=== PATIENT | female | born 1935 | race Caucasian/White ===

== ENCOUNTER 2017-06-06 17:27 | Inpatient (IN) | payer BC, OTHER ==
[~2017-06-06] VITALS: Ht 162.6 cm; Wt 65.3 kg
[~2017-06-06 17:27] MED LIST: ACET-868 PO; ASCO-340 PO; CHOL20006 PO; CYAN500T4 PO; FERR240T2 PO; LEVO500T15 PO; NAPR220T66 PO; PANT40TA2 PO
[2017-06-06 19:04] LABS: HEMATOCRIT 25 % (33-45); HEMOGLOBIN 7.4 g/dL (11.5-14.8); MEAN CORPUSCULAR HEMOGLOBIN 19 PG (26.0-33.0); MEAN CORPUSCULAR HGB CONC 29 g/dl (31.0-36.0); MEAN CORPUSCULAR VOLUME 66 fL (82-100); PLATELET COUNT (AUTO) 301 /CMM (150-450); RDW COEFFICIENT OF VARIATION 18.8 (11.5-15.0); RED BLOOD CELL COUNT(AUTO) 3.86 MIL/uL (4.0-5.2); WHITE BLOOD COUNT (AUTO) 6.7 K/uL (4.3-11.0)
[2017-06-06 19:09] LABS: APPEARANCE,URINE Clear (CLEAR); BILIRUBIN,URINE SMALL (NEGATIVE); BLOOD, URINE Negative Ery/uL (NEGATIVE); COLOR,URINE Yellow (YELLOW); KETONES,URINE Negative (NEGATIVE); LEUKOCYTE ESTERASE ,URINE Negative (NEGATIVE); NITRITE, URINE Negative (NEGATIVE); PH,URINE 5.5 (5.0-8.0); PROTEIN,URINE Negative (NEGATIVE); UGLUCOSE Negative (NEGATIVE); UROBILINOGEN,URINE 0.2 EU/dL (0.2)
[2017-06-06 19:26] LABS: ALANINE AMINOTRANSFERASE 148 U/L (12-78); ALBUMIN 3.3 g/dL (3.4-5.0); ALKALINE PHOSPHATASE 253 U/L (46-116); ASPARTATE AMINOTRANSFERASE 87 U/L (15-37); BILIRUBIN,DIRECT 1.3 mg/dL (0.0-0.2); BILIRUBIN,TOTAL 1.6 mg/dL (0.2-1.0); CALCIUM, SERUM 8.7 mg/dL (8.5-10.1); CARBON DIOXIDE 22 mmol/L (21-32); CHLORIDE 102 mmol/L (98-107); CREATININE 0.9 mg/dL (0.6-1.3); GLUCOSE 143 mg/dL (74-106); LIPASE 183 U/L (73-393); POTASSIUM 4.2 mmol/L (3.5-5.1); SODIUM SERUM 135 mmol/L (136-145); TOTAL PROTEIN, SERUM 6.7 g/dL (6.4-8.2); UREA NITROGEN, BLOOD 41 mg/dL (7-18)
[2017-06-06 19:42] LABS: TROPONIN I < 0.017 ng/mL (0.00-0.056)
[2017-06-06 20:13] LABS: BAND % (MANUAL) 5 % (0.0-5.0); EOSINOPHILS % (MANUAL) 2 % (0-4); LYMPHOCYTES % (MANUAL) 6 % (16-48); MONOCYTES % (MANUAL) 2 % (0-11.0); NEUTROPHILS % (MANUAL) 85 (42-76)
[2017-06-06 22:00] VITALS: BP 148/77
[2017-06-06 22:16] VITALS: BP 148/77
[2017-06-06] MEDS ORDERED: diphenhydrAMINE HCL 25 MG CAPSULE PO PRN (22:30)
[2017-06-06] MEDS ORDERED: ZOLPIDEM TARTRATE 5 MG TABLET PO PRN (22:30)
[2017-06-06] MEDS ORDERED: HYDROCODONE/APAP 5/325MG 1 EACH TABLET PO PRN (22:30)
[2017-06-07] VITALS (16 sets, daily range): BP systolic 102–137; BP diastolic 48–83
[2017-06-07] MEDS ORDERED: diphenhydrAMINE HCL 25 MG CAPSULE ONE (01:51)
[2017-06-07] MEDS ORDERED: MULT-1168 PO (08:45)
[2017-06-07] MEDS ORDERED: FERR-58 PO (08:45)
[2017-06-07] MEDS ORDERED: CHOLECALCIFEROL 1,000 UNIT TABLET (VIT D3) PO SCH (13:00)
[2017-06-07 15:19] LABS: HEMATOCRIT 33 % (33-45); HEMOGLOBIN 10.3 g/dL (11.5-14.8); MEAN CORPUSCULAR HEMOGLOBIN 23 PG (26.0-33.0); MEAN CORPUSCULAR HGB CONC 32 g/dl (31.0-36.0); MEAN CORPUSCULAR VOLUME 73 fL (82-100); PLATELET COUNT (AUTO) 222 /CMM (150-450); RED BLOOD CELL COUNT(AUTO) 4.51 MIL/uL (4.0-5.2)
[2017-06-07 15:36] LABS: CALCIUM, SERUM 8.5 mg/dL (8.5-10.1); CARBON DIOXIDE 27 mmol/L (21-32); CHLORIDE 108 mmol/L (98-107); CREATININE 0.7 mg/dL (0.6-1.3); GLUCOSE 102 mg/dL (74-106); POTASSIUM 4.2 mmol/L (3.5-5.1); SODIUM SERUM 141 mmol/L (136-145); UREA NITROGEN, BLOOD 25 mg/dL (7-18)
[2017-06-07 15:41] LABS: EOSINOPHILS % (MANUAL) 8 % (0-4); LYMPHOCYTES % (MANUAL) 20 % (16-48); MONOCYTES % (MANUAL) 16 % (0-11.0); NEUTROPHILS % (MANUAL) 56 (42-76)
[2017-06-08] MEDS ORDERED: PANTOPRAZOLE 40 MG TABLET.DR PO SCH (07:30)
[2017-06-08] MEDS ORDERED: ASCORBIC ACID 500 MG TABLET PO SCH (09:00)
[2017-06-08] MEDS ORDERED: FERROUS SULFATE (325 MG) 325 MG/TAB TABLET PO SCH (09:00)
== END 2017-06-07 16:30 | disposition home or self-care (01) | DRG 812 ==
LOC: ER 17:34 → TELE 21:21 → MED 06-07 06:51
PROVIDERS: ADMIT Internal Medicine; ATTEND Internal Medicine
PROC: 30233N1 Transfusion of Nonautologous Red Blood Cells into Peripheral Vein, Percutaneous Approach (ICD-10-PCS; principal; 2017-06-06)
DX: D64.9 Anemia, unspecified (principal); Z98.890 Other specified postprocedural states
CPT/HCPCS: 36415; 71010-TC; 80048-TC; 80076-TC; 81000-TC; 83690-TC; 84484-TC; 85025-TC; 86850-TC; 86921-TC; 87081-TC; A4606; J7050; P9016-BL; Q0163; Z7610

== ENCOUNTER 2018-05-02 13:48 | Inpatient (IN) | payer BC, OTHER ==
[~2018-05-02] VITALS: Ht 162.6 cm; Wt 67.1 kg
[~2018-05-02 13:48] MED LIST changes: -ACET-868 PO; -CYAN500T4 PO; -FERR240T2 PO; +FERR325T23 PO; -LEVO500T15 PO; +MULT-1168 PO; -NAPR220T66 PO
--- NOTE | 2018-05-02 14:00 | NUR ---
PT CAME IN FROM HOME WITH C/O FEELING WEAK FOR A WEEK WITH DIARRHEA. PT AAOX4. AMBULATORY. NAD NOTED. VSS. SEEN BY MD FOR EVAL. SAFETY AND COMFORT MEASURES PROVIDED. WILL MONITOR.
--- NOTE | 2018-05-02 15:30 | NUR ---
IV ACCESS STARTED.
[2018-05-02 15:35] LABS: BASOPHILS % (AUTO) 0.5 % (0.0-2.0); EOSINOPHILS % (AUTO) 0.6 % (0.0-6.0); HEMATOCRIT 24 % (33-45); HEMOGLOBIN 7.8 g/dL (11.5-14.8); LYMPHOCYTES # (AUTO) 0.5 /CMM (0.8-4.8); LYMPHOCYTES % (AUTO) 9.1 % (20.0-44.0); MEAN CORPUSCULAR HEMOGLOBIN 24 PG (26.0-33.0); MEAN CORPUSCULAR HGB CONC 33 g/dl (31.0-36.0); MEAN CORPUSCULAR VOLUME 73 fL (82-100); MONOCYTES # (AUTO) 0.7 /CMM (0.1-1.30); MONOCYTES % (AUTO) 11.1 % (2.0-12.0); NEUTROPHILS # (AUTO) 4.8 /CMM (1.8-8.9); NEUTROPHILS % (AUTO) 78.7 % (43.0-81.0); PLATELET COUNT (AUTO) 238 /CMM (150-450); RDW COEFFICIENT OF VARIATION 17.8 (11.5-15.0); RED BLOOD CELL COUNT(AUTO) 3.22 MIL/uL (4.0-5.2)
[2018-05-02 15:43] LABS: CARBON DIOXIDE 28 mmol/L (21-32); CHLORIDE 99 mmol/L (98-107); CREATININE 0.9 mg/dL (0.6-1.3); GLUCOSE 103 mg/dL (74-106); POTASSIUM 3.5 mmol/L (3.5-5.1); SODIUM SERUM 135 mmol/L (136-145); UREA NITROGEN, BLOOD 14 mg/dL (7-18)
[2018-05-02 15:48] LABS: INR 0.95 (0.85-1.15)
[2018-05-02] MEDS ORDERED: CYAN10009 PO (17:22)
[2018-05-02] MEDS ORDERED: LEVO5TAB13 PO (17:22)
[2018-05-02] MEDS ORDERED: ASPI-1152 PO (17:22)
--- NOTE | 2018-05-02 17:22 | NUR ---
CALLED [employer] [facility] WAS PAGED.
[2018-05-02] MEDS ORDERED: CHOL200026 PO (17:26)
[2018-05-02] MEDS ORDERED: MULT-1160 PO (17:26)
[2018-05-02] MEDS ORDERED: ACETAMINOPHEN 325 MG TABLET PO PRN (18:30)
[2018-05-02] MEDS ORDERED: MAGNESIUM HYDROXIDE 30 ML UDC PO PRN (18:30)
[2018-05-02] MEDS ORDERED: HYDROCODONE/APAP 5/325MG 1 EACH TABLET PO PRN (18:30)
[2018-05-02] MEDS ORDERED: ZOLPIDEM TARTRATE 5 MG TABLET PO PRN (18:30)
[2018-05-02] MEDS ORDERED: Z GUARD REMEDY 2 OZ OINT TP PRN (18:30)
[2018-05-02] MEDS ORDERED: ONDANSETRON HCL/PF 4 MG/2 ML VIAL IVP PRN (18:30)
[2018-05-02] MEDS ORDERED: MAG HYDROX/AL HYDROX/SIMETH 30 ML UDC PO PRN (18:30)
--- NOTE | 2018-05-02 18:31 | NUR ---
TRIED CALLING FOR REPORT BUT WAS PLACED ON HOLD FOR 10 MINS- NO NURSE AVAILABLE.
--- NOTE | 2018-05-02 19:19 | NUR ---
REPORT GIVEN TO WILBERT MACKEY FOR DRAKE.
--- NOTE | 2018-05-02 19:23 | NUR ---
Amada shi in [facility] - 05/02/18 at 1924 by EJ REPORT GIVEN TO HERMELINDA GODDARD
--- NOTE | 2018-05-02 19:24 | NUR ---
REPORT GIVEN TO HERMELINDA GODDARD
[2018-05-02 19:35] VITALS: BP 123/57
--- NOTE | 2018-05-02 19:35 | NUR ---
RN NOTES ADMITTED PT FROM ER VIA [place], AWAKE, ALERT AND ORIENTED X4. PT ADMITTED WITH PRIMARY DIAGNOSIS OF DIARRHEA AND ANEMIA. PT DENIES ANY PAIN AND DISCOMFORT AT THIS TIME. VITAL SIGNS STABLE, AFEBRILE. SKIN ASSESSMENT DONE, SKIN CLEAR AND INTACT. IV ACCESS ON LEFT FOREARM PATENT AND INTACT. PT IS AMBULATORY WITH ASSISST. SAFETY MEASURES AND FALL PRECAUTION IN PLACE. PT FOR BT, AWAITING FOR BLOOD TO BE READY. KEPT COMFORTABLE AND ATTENDED. WILL CONTINUE TO MONITOR PT.
[2018-05-02 20:30] VITALS: BP 123/56
[2018-05-02 21:50] VITALS: BP 129/59
--- NOTE | 2018-05-02 21:50 | NUR ---
RN NOTES BLOOD TRANSFUSION STARTED, VITAL SIGNS STABLE. WILL CONTINUE TO MONITOR PT.
[2018-05-02 22:05] VITALS: BP 119/61
[2018-05-02] MEDS: CHOLECALCIFEROL 1,000 UNIT TABLET (VIT D3) PO SCH (22:17)
[2018-05-02] MEDS: CYANOCOBALAMIN 500 MCG TABLET PO SCH (22:17)
[2018-05-02 22:35] VITALS: BP 123/57
[2018-05-02 23:35] VITALS: BP 130/70
[2018-05-03] VITALS (8 sets, daily range): BP systolic 111–126; BP diastolic 56–64
[2018-05-03 06:30] LABS: BASOPHILS % (AUTO) 0.5 % (0.0-2.0); EOSINOPHILS % (AUTO) 1.7 % (0.0-6.0); HEMATOCRIT 28 % (33-45); LYMPHOCYTES # (AUTO) 0.5 /CMM (0.8-4.8); LYMPHOCYTES % (AUTO) 9.9 % (20.0-44.0); MEAN CORPUSCULAR HEMOGLOBIN 25 PG (26.0-33.0); MEAN CORPUSCULAR HGB CONC 33 g/dl (31.0-36.0); MEAN CORPUSCULAR VOLUME 75 fL (82-100); MONOCYTES # (AUTO) 0.9 /CMM (0.1-1.30); MONOCYTES % (AUTO) 18.2 % (2.0-12.0); NEUTROPHILS # (AUTO) 3.7 /CMM (1.8-8.9); NEUTROPHILS % (AUTO) 69.7 % (43.0-81.0); PLATELET COUNT (AUTO) 213 /CMM (150-450); RDW COEFFICIENT OF VARIATION 18.3 (11.5-15.0); RED BLOOD CELL COUNT(AUTO) 3.66 MIL/uL (4.0-5.2); WHITE BLOOD COUNT (AUTO) 5.2 K/uL (4.3-11.0)
--- NOTE | 2018-05-03 06:40 | NUR ---
RN NOTES NO REACTION ON BLOOD TRANSFUSION NOTED, VITAL SIGNS STABLE. PT VERBALIZES SHE REGAIN HER STRENGTH AFTER THE TRANSFUSION. PT HAD 4 EPISODES OF WATERY STOOL, YELLOW GREEN IN COLOR. PT DENIES ABDOMINAL PAIN, NAUSEA AND VOMITING. KEPT PT ON NPO. TELE MONITOR READS SINUS RHYTHM WITH HEART RATE AT 84/MIN. SAFETY MEASURES AND FALL PRECAUTION OBSERVED. ALL NEEDS MET. WILL ENDORSE TO MORNING RN FOR CONTINUITY OF CARE.
[2018-05-03 07:03] LABS: CALCIUM, SERUM 8.9 mg/dL (8.5-10.1); CARBON DIOXIDE 27 mmol/L (21-32); CHLORIDE 104 mmol/L (98-107); CREATININE 0.8 mg/dL (0.6-1.3); GLUCOSE 102 mg/dL (74-106); PHOSPHORUS 3.4 mg/dL (2.5-4.9); POTASSIUM 3.6 mmol/L (3.5-5.1); SODIUM SERUM 140 mmol/L (136-145); UREA NITROGEN, BLOOD 13 mg/dL (7-18)
[2018-05-03 07:12] LABS: CHOLESTEROL 135 mg/dL (<200); FERRITIN 11 ng/mL (8-388); HDL CHOLESTEROL 47 mg/dL (40-60); LDL 80 mg/dL (0-99); TRIGLYCERIDES 64 mg/dL (30-150)
[2018-05-03] MEDS ORDERED: PANTOPRAZOLE 40 MG TABLET.DR PO SCH (07:30)
--- NOTE | 2018-05-03 07:38 | NUR ---
RN BIRTHING OPENING NOTES RECEIVED PT FROM NIGHTSHIFT NURSE IN STABLE CONDITION. PT IS A/O X3. NO SOB OR SIGNS OF DISTRESS NOTED. BREATHING IS EVEN AND UNLABORED. PT ON RA AND SATING WELL. SHE DENIES ANY DIZZINESS AT THIS TIME. VITALS STABLE. PT IS SR ON THE TELE MONITOR WITH A HR OF 82. IV TO LEFT FA NOTED TO BE PATENT AND INTACT. NO REDNESS OR SIGNS OF INFILTRATION NOTED. BED IN LOW LOCKED POSITION, SIDE RAILS UP X2, CALL ROBBIE BURROWS. WILL CONTINUE TO MONITOR
[2018-05-03 07:44] LABS: IRON, SERUM 90 ug/dl (50-175); TOTAL IRON BINDING CAPACITY 439 ug/dl (250-450)
[2018-05-03] MEDS ORDERED: cetrizine 10 MG TABLET PO PRN (08:30)
[2018-05-03] MEDS: MULTIVITAMIN/LUTEIN/MINERALS 1 TAB PO SCH (08:35)
[2018-05-03] MEDS: ASCORBIC ACID 500 MG TABLET PO SCH (08:35)
[2018-05-03] MEDS: CHOLECALCIFEROL 1,000 UNIT TABLET (VIT D3) PO SCH (08:35)
[2018-05-03] MEDS: CYANOCOBALAMIN 500 MCG TABLET PO SCH (08:35)
--- NOTE | 2018-05-03 10:25 | NUR ---
MS RN NOTES: STOOL SAMPLE STOOL SAMPLE TAKEN AND PLACED IN FRIDGE. LAB NOTIFIED.
[2018-05-03 12:27] LABS: OCCULT BLOOD STOOL NEGATIVE (NEGATIVE)
--- NOTE | 2018-05-03 18:43 | NUR ---
MS RN CLOSING NOTES PT REMAINS IN STABLE CONDITION. ALL NEEDS WERE MET DURING SHIFT AND ORDERS CARRIED OUT ACCORDINGLY. ALL DUE MEDS GIVEN. PT TOLERATING CLEAR LIQUID DIET WELL. NO EPISODES OF N/V OR DIARRHEA AT THIS TIME. STOOL STUDIES REMAIN PENDING. SAFETY MEASURES REMAIN IN PLACE. WILL ENDORSE TO NIGHTSHIFT NURSE FOR DRAKE
--- NOTE | 2018-05-03 19:30 | NUR ---
MS RN NOTES RECEIVED ON BED A/O X4,BREATHING NORMAL,NOT IN ANY FORM OF DISTRESS.SALINE LOCK LFA INTACT AND PATENT.CLAIMED SHE FEELS MUCH BETTER AFTER UNIT OF BLOOD.CALL LIGHT IN REACH,NEEDS ANTICIPATED.
--- NOTE | 2018-05-03 23:00 | NUR ---
MS RN NOTES SOUND ASLEEP,KEPT WARM AND COMFORTABLE.
--- NOTE | 2018-05-04 05:00 | NUR ---
MS RN NOTES AWAKE,INSTRUCTED NPO ORDERED,GOING FOR EGD TODAY.PATIENT REFUSED TO SIGN CONSENT UNTIL SEEN BY GI DOCTOR AND EXPLAIN THE PROCEDURE.
[2018-05-04 06:34] LABS: HEMATOCRIT 30 % (33-45); HEMOGLOBIN 9.1 g/dL (11.5-14.8); MEAN CORPUSCULAR HEMOGLOBIN 23 PG (26.0-33.0); MEAN CORPUSCULAR HGB CONC 30 g/dl (31.0-36.0); MEAN CORPUSCULAR VOLUME 77 fL (82-100); PLATELET COUNT (AUTO) 275 /CMM (150-450); RDW COEFFICIENT OF VARIATION 19.4 (11.5-15.0); RED BLOOD CELL COUNT(AUTO) 3.92 MIL/uL (4.0-5.2); WHITE BLOOD COUNT (AUTO) 4.3 K/uL (4.3-11.0)
[2018-05-04 06:36] LABS: CALCIUM, SERUM 8.7 mg/dL (8.5-10.1); CARBON DIOXIDE 27 mmol/L (21-32); CHLORIDE 105 mmol/L (98-107); CREATININE 0.8 mg/dL (0.6-1.3); GLUCOSE 84 mg/dL (74-106); POTASSIUM 3.4 mmol/L (3.5-5.1); SODIUM SERUM 141 mmol/L (136-145); UREA NITROGEN, BLOOD 7 mg/dL (7-18)
--- NOTE | 2018-05-04 06:47 | NUR ---
MS RN NOTES FAIRLY RESTED AT NOC.AMBULATE WITH STEADY GAIT,NPO STATUS.NO BLEEDING NOTED.CALL LIGHT IN REACH,NEEDS ATTENDED.WILL ENDORSE TO DAY NURSE FOR DRAKE.
[2018-05-04 08:00] VITALS: BP 124/64
--- NOTE | 2018-05-04 08:00 | NUR ---
MS RN AM NOTES RECEIVED ON BED A/O X4,BREATHING NORMAL,NOT IN ANY FORM OF DISTRESS.SALINE LOCK LFA INTACT AND PATENT.CLAIMED SHE FEELS MUCH BETTER AFTER UNIT OF BLOOD.PT REFUSED EGD PROCEDURE -NOTIFIED DR MC AND RAMSEY LINTON.DR MC ORDERED TO RESUME PT'S DIET AND WILL JUST DO EGD OUTPT.AWAITING FOR PT'S STOOL WORK-UP FROM THE LAB.CALL LIGHT WITHIN REACH,
[2018-05-04 08:32] LABS: BAND % (MANUAL) 1 % (0.0-5.0); EOSINOPHILS % (MANUAL) 2 % (0-4); LYMPHOCYTES % (MANUAL) 13 % (16-48); MONOCYTES % (MANUAL) 8 % (0-11.0); NEUTROPHILS % (MANUAL) 76 (42-76)
[2018-05-04] MEDS: LACTOBACILLUS RHAMNOSUS GG 1 EACH CAP.SPRINK PO SCH ×2 (09:29→16:54)
[2018-05-04] MEDS: CYANOCOBALAMIN 500 MCG TABLET PO SCH (09:29)
[2018-05-04] MEDS: PANTOPRAZOLE 40 MG VIAL IV SCH (09:30)
[2018-05-04] MEDS ORDERED: POTASSIUM CHLORIDE 20 MEQ TAB.PRT.SR PO SCH (09:30)
[2018-05-04] MEDS: MULTIVITAMIN/LUTEIN/MINERALS 1 TAB PO SCH (09:30)
[2018-05-04] MEDS: CHOLECALCIFEROL 1,000 UNIT TABLET (VIT D3) PO SCH (09:30)
[2018-05-04] MEDS: ASCORBIC ACID 500 MG TABLET PO SCH (09:30)
--- NOTE | 2018-05-04 14:44 | NUR ---
LAB CALLED AND REPORTED CAMPYLOBACTER ANTIGEN PRESENT IN STOOL.INFORMED DR MC AND MADE AWARE.
[2018-05-04 16:00] VITALS: BP 125/60
--- NOTE | 2018-05-04 17:30 | NUR ---
PT RESTING COMFORTABLY DENYING ANY PAIN OR DISTRESS.CALL LIGHT WITHIN REACH.
--- NOTE | 2018-05-04 19:30 | NUR ---
MS RN NOTES RECEIVED LAYING COMFORTABLY ON BED,A/O X4,DENIES PAIN,CONVERSANT,SALINE LOCK LFA INTACT AND PATENT.CALL LIGHT IN REACH,NEEDS ANTICIPATED.
[2018-05-04 20:00] VITALS: BP 115/60
--- NOTE | 2018-05-04 23:00 | NUR ---
MS RN NOTES SLEEPING THIS TIME,KEPT WARM AND COMFORTABLE.
[2018-05-05 06:15] LABS: HEMATOCRIT 33 % (33-45); HEMOGLOBIN 9.8 g/dL (11.5-14.8); MEAN CORPUSCULAR HEMOGLOBIN 23 PG (26.0-33.0); MEAN CORPUSCULAR HGB CONC 29 g/dl (31.0-36.0); MEAN CORPUSCULAR VOLUME 78 fL (82-100); PLATELET COUNT (AUTO) 304 /CMM (150-450); RDW COEFFICIENT OF VARIATION 19.2 (11.5-15.0); RED BLOOD CELL COUNT(AUTO) 4.28 MIL/uL (4.0-5.2); WHITE BLOOD COUNT (AUTO) 4.6 K/uL (4.3-11.0)
[2018-05-05 06:36] LABS: CARBON DIOXIDE 29 mmol/L (21-32); CHLORIDE 105 mmol/L (98-107); CREATININE 0.8 mg/dL (0.6-1.3); GLUCOSE 103 mg/dL (74-106); SODIUM SERUM 140 mmol/L (136-145); UREA NITROGEN, BLOOD 13 mg/dL (7-18)
--- NOTE | 2018-05-05 06:40 | NUR ---
MS RN NOTES NO SIGNIFICANT CHANGE IN STATUS.STOOL EXAM RESULT TURNS OUT NEGATIVE.SLEPT WELL,DENIES PAIN,CALL LIGHT IN REACH,NEEDS ATTENDED.POSSIBLE D/C TODAY TO HOME.WILL ENDORSE TO DAY NURSE FOR DRAKE.
--- NOTE | 2018-05-05 07:22 | NUR ---
MS RN NOTES PATIENT RECEIVED RESTING INSIDE ROOM. AWAKE, ALERT AND ORIENTED X 4, VERBALLY RESPONSIVE AND RESPONDS TO VERBAL AND TACTILE STIMULI. BREATHING EVEN AND UNLABORED. NO SOB OR ACUTE DISTRESS NOTED AT THIS TIME. PATIENT DENIES ANY PAIN OR DISCOMFORT. NO CHANGES IN LOC NOTED AT THIS TIME. PATIENT CALM AND RELAXED. IV SITE INTACT AND PATENT. NO SWELLING OR BLEEDING NOTED. WILL CONTINUE TO MONITOR. BED LOCKED AND IN LOW POSITION. BILATERAL UPPER SIDE RAILS UP AND LOCKED. CALL LIGHT WITHIN EASY REACH
[2018-05-05 08:10] LABS: BAND % (MANUAL) 2 % (0.0-5.0); EOSINOPHILS % (MANUAL) 4 % (0-4); LYMPHOCYTES % (MANUAL) 22 % (16-48); MONOCYTES % (MANUAL) 10 % (0-11.0); NEUTROPHILS % (MANUAL) 62 (42-76)
[2018-05-05] MEDS: CHOLECALCIFEROL 1,000 UNIT TABLET (VIT D3) PO SCH (08:17)
[2018-05-05] MEDS: LACTOBACILLUS RHAMNOSUS GG 1 EACH CAP.SPRINK PO SCH (08:17)
[2018-05-05] MEDS: PANTOPRAZOLE 40 MG VIAL IV SCH (08:17)
[2018-05-05] MEDS: ASCORBIC ACID 500 MG TABLET PO SCH (08:17)
[2018-05-05] MEDS: MULTIVITAMIN/LUTEIN/MINERALS 1 TAB PO SCH (08:17)
[2018-05-05] MEDS: CYANOCOBALAMIN 500 MCG TABLET PO SCH (08:17)
--- NOTE | 2018-05-05 11:00 | NUR ---
MS RN NOTES PATIENT SEEN AND EXAMINED BY DR. MC. WITH ORDER TO DISCHARGE HOME. PATIENT MADE AWARE AND VERBALIZED UNDERSTANDING. WILL CONTINUE TO MONITOR
--- NOTE | 2018-05-05 13:26 | NUR ---
MS RN NOTES PATIENT TO DISCHARGE HOME TODAY. DISCHARGE INSTRUCTIONS AND TEACHING PROVIDED AND VERBALIZED UNDERSTANDING. ALL BELONGINGS COMPLETE, NO REPORT OF MISSING INVENTORY. PATIENT AFEBRILE, SKIN DRY AND WARM TO TOUCH. NO CHANGES IN LOC NOTED AT THIS TIME. IV REMOVED WITH MINIMAL BLEEDING NOTED, PRESSURE DRESSING APPLIED TO SITE. IDENTIFICATION BANDS REMOVED AND GIVEN TO PATIENT PER PATIENT REQUEST. HOME MEDICATIONS OBTAINED FROM PHARMACY AND GIVEN TO PATIENT. PATIENT LEFT UNIT AT 1320 IN STABLE CONDITION. LEFT VIA WHEELCHAIR. NO NEW SKIN BREAKDOWN NOTED. PATIENT ACCOMPANIED TO PARKING LOT, LEFT BY PRIVATE CAR. MD AWARE OF DISCHARGE
== END 2018-05-05 13:17 | disposition home or self-care (01) | DRG 373 ==
LOC: ER 13:52 → TELE 18:30 → MED 05-03 09:22
PROVIDERS: ADMIT Family Medicine; ATTEND Family Medicine
DX: A04.9 Bacterial intestinal infection, unspecified (principal); E55.9 Vitamin D deficiency, unspecified; K21.9 Gastro-esophageal reflux disease without esophagitis; Z79.82 Long term (current) use of aspirin; I25.10 Atherosclerotic heart disease of native coronary artery without angina pectoris; D63.8 Anemia in other chronic diseases classified elsewhere; D50.9 Iron deficiency anemia, unspecified; Z79.899 Other long term (current) drug therapy; B96.89 Other specified bacterial agents as the cause of diseases classified elsewhere
CPT/HCPCS: 36415; 80048-TC; 80061-TC; 82272-TC; 82378; 82728-TC; 83540-TC; 83735-TC; 84100-TC; 85025-TC; 85730-TC; 86850-TC; 86921-TC; 87045-TC; 87081-TC; 87177; 87209; 89055; A4606; C9113; P9016-BL; Z7610